=== PATIENT | male | born 1995 | race Caucasian/White ===

== ENCOUNTER 2017-02-11 17:16 | Emergency (ER) | payer BC, OTHER ==
--- NOTE | 2017-02-11 18:05 | ED ---
Male Urogenital HPI - General Chief complaint: Urogenital Stated complaint: high ketone levels Time Seen by Provider: 02/11/17 17:53 Source: patient, RN notes reviewed Mode of arrival: ambulatory Limitations: no limitations - History of Present Illness Initial comments: 21-year-old male presents to the chief complaint of a left swollen testicle for the past day. He reports that he has been having some pain over the left testicle for the past 5 days. He reports he went to [facility] and was told that he had a high ketone level in his urine and was told come to the ED. Patient received no other treatment besides urinalysis. Patient makes no indication of any infection, denies concern for STDs. Patient states that he did have a fever last night. Patient denies any trauma over the area. He reports that his urine is been a somewhat cloudy color. Patient reports that whenever he has the testicular pain he seems to have subsequent chest pain at the same time. Patient denies any significant past medical history. Patient reports normal bowel movements, denies any nausea or vomiting. - Related Data Previous Rx's Medication Instructions Recorded Doxycycline [Vibramycin] 100 mg PO Q12HR #40 capsule 02/11/17 Allergies Allergy/AdvReac Type Severity Reaction Status Date / Time No Known Allergies Allergy Verified 02/11/17 18:08 Review of Systems ROS Statement: Those systems with pertinent positive or pertinent negative responses have been documented in the HPI. ROS Other: All systems not noted in ROS Statement are negative. Past Medical History Past Medical History: No Reported History Additional Past Medical History / Comment(s): DYSPHAGIA; OCC FOOD "COMES BACK UP." History of Any Multi-Drug Resistant Organisms: None Reported Past Surgical History: No Surgical Hx Reported Additional Past Anesthesia/Blood Transfusion Reaction / Comment(s): ONLY HX OF NITROUS OXIDE, NO REACTION. Past Psychological History: No Psychological Hx Reported Smoking Status: Never smoker Past Alcohol Use History: Occasional Past Drug Use History: None Reported General Exam - General Exam Comments Initial Comments: Pleasant 21-year-old male. No acute distress. Limitations: no limitations General appearance: alert, in no apparent distress Head exam: Present: atraumatic, normocephalic, normal inspection Eye exam: Present: normal appearance, PERRL, EOMI. Absent: scleral icterus, conjunctival injection, periorbital swelling ENT exam: Present: normal exam, normal oropharynx, mucous membranes moist, TM's normal bilaterally Neck exam: Present: normal inspection. Absent: tenderness, meningismus, lymphadenopathy Respiratory exam: Present: normal lung sounds bilaterally. Absent: respiratory distress, wheezes, rales, rhonchi, stridor Cardiovascular Exam: Present: regular rate, normal rhythm, normal heart sounds. Absent: systolic murmur, diastolic murmur, rubs, gallop, clicks GI/Abdominal exam: Present: soft, normal bowel sounds. Absent: distended, tenderness, guarding, rebound, rigid exam: Present: testicular tenderness (left testicular tenderness and swelling ). Absent: normal inspection, urethral discharge, scrotal swelling, vertical testicular lie, circumcision Extremities exam: Present: normal inspection, full ROM, normal capillary refill. Absent: tenderness, pedal edema, joint swelling, calf tenderness Back exam: Present: normal inspection Neurological exam: Present: alert, oriented X3, CN II-XII intact Psychiatric exam: Present: normal affect, normal mood Skin exam: Present: warm, dry, intact, normal color. Absent: rash Course Vital Signs 02/11/17 02/11/17 17:18 21:03 Temperature 97.6 F 98.3 F Pulse Rate 78 93 Respiratory 16 18 Rate Blood Pressure 128/71 130/60 O2 Sat by Pulse 97 98 Oximetry Medical Decision Making - Medical Decision Making 21-year-old male presents to the chief complaint of a left swollen testicle for the past day. He reports that he has been having some pain over the left testicle for the past 5 days. He reports he went to [facility] and was told that he had a high ketone level in his urine and was told come to the ED. Patient received no other treatment besides urinalysis. Patient makes no indication of any infection, denies concern for STDs. Patient states that he did have a fever last night. Patient denies any trauma over the area. He reports that his urine is been a somewhat cloudy color. Patient urine has no significant signs of infection. US shows evidence of mild left sided orchitis and epididmytis. Patient will be treated with antibiotics, rocephin and doxycycline. Discussed scrotal support. Urinalysis did show 3+ ketones, discussed this is likely due to dehydration. EKG was within normal limits. Discussed the possiblity that there can be some viral causes of testicular swelling, such as mumps. Patient reports he received all vaccines. Patient also instructed to follow up with urologist and PCP if symptoms persist despite adequete treatment with antibiotics and scrotal support. - Lab Data Lab Results 02/11/17 02/11/17 Range/Units 18:15 18:28 POC Glucose (mg/dL) 77 (75-99) mg/dL POC Glu Density Control Puncher ID Wyatt Monterroso Urine Color Yellow Urine Appearance Clear (Clear) Urine pH 6.0 (5.0-8.0) Ur Specific [place] 1.027 (1.001-1.035) Urine Protein 1+ H (Negative) Urine Glucose (UA) Negative (Negative) Urine Ketones 3+ H (Negative) Urine Blood Negative (Negative) Urine Nitrite Negative (Negative) Urine Bilirubin Negative (Negative) Urine Urobilinogen 2.0 (<2.0) mg/dL Ur Leukocyte Esterase Negative (Negative) Urine RBC 1 (0-5) /hpf Urine WBC 1 (0-5) /hpf Urine Mucus Occasional H (None) /hpf 02/11/17 18:41 EKG shows normal sinus rhythm. Ventricular rate of 66 bpm. AL interval 150 ms. QRS ratio 96 no seconds. QT QTc is 400/419 ms. No evidence of ST elevation or T-wave inversion. No evidence of atrial or ventricular arrhythmias. - Radiology Data Radiology results: report reviewed Doppler performed to assess testicular vascularity. Good bilateral color flow and waveforms are seen. There is no evidence of torsion however the left testicle appears to be somewhat increased arterial flow in the right testicle. There is fluid noted bilaterally, likely small hydroceles. There is possibly for some mild left orchitis. Disposition Clinical Impression: Orchitis and epididymitis Disposition: HOME SELF-CARE Condition: Good Instructions: Epididymo-Orchitis (ED), Urinary Tract Infection in Men (ED) Additional Instructions: Patient advised to do a scrotal support. Also recommended applying cool washcloth to the scrotum. Patient needs to complete the antibiotic prescription. Patient needs to remain hydrated. Return to the emergency department if any alarming signs or symptoms occur. Prescriptions: Doxycycline [Vibramycin] 100 mg PO Q12HR #40 capsule Referrals: Marcelina Ashton SN [Student Nurse] - 1-2 days Juan M Adame MD [STAFF PHYSICIAN] - 1-2 days Time of Disposition: 20:33
[2017-02-11 18:29] LABS: Appearance,Urine Clear (Clear); Bilirubin,Urine Negative (Negative); Glucose,Urine (UA) Negative (Negative); Ketones,Urine 3+ (Negative); Leukocyte Esterase,Urine Negative (Negative); Mucus,Urine Occasional /hpf; Nitrite,Urine Negative (Negative); Particle Count 4425; Protein,Urine 1+ (Negative); RBC,Urine 1 /hpf (0-5); Specific Gravity,Urine 1.027 (1.001-1.035); UA Billing (MACRO vs. MICRO) MICRO; WBC,Urine 1 /hpf (0-5)
[2017-02-11 18:37] LABS: Glucose,Whole Blood 77 mg/dL (75-99)
--- NOTE | 2017-02-11 19:43 | US ---
EXAMINATION TYPE: US scrotum with doppler. Grayscale and color Doppler Duplex imaging performed of t feliciano scrotum. DATE OF EXAM: 02/11/2017 COMPARISON: NONE CLINICAL HISTORY: Swelling of left testicle with chest pain. EXAM MEASUREMENTS: TESTICLES: Right Testicle: 4.3 x 2.1 x 3.3 cm Left Testicle: 4.8 x 2.5 x 3.4 cm EPIDIDYMIS HEAD: Right Epididymis: 1.3 cm Left Epididymis: 1.3 cm Doppler performed to assess for testicular vascularity; good bilateral color flow and waveforms are s een. There is no evidence of testicular torsion. However, the left testicle appears to have somewha t increased arterial flow than the right testicle. Presence of hydroceles: Fluid noted bilaterally, likely small hydroceles Presence of varicoceles: No IMPRESSION: 1. May be some increased flow to the left testicle compared to the right. Correlate for mild left orc hitis.
[2017-02-11] MEDS ORDERED: cefTRIAXone 250 MG VIAL IM STA (20:32)
[2017-02-11] MEDS ORDERED: DOXYCYCLINE 50 MG CAP PO STA (20:33)
[2017-02-11 21:05] VITALS: BP 130/60; PULSE 93; RESP 18; TEMP 98.3
== END 2017-02-11 21:03 | disposition home or self-care (01) ==
LOC: EC 17:16
DX: N45.3 Epididymo-orchitis (principal); R07.9 Chest pain, unspecified
CPT/HCPCS: 36415; 93005; 81001; 87491; 87591; 93975; 76870; 99284; 96372; J0696

== ENCOUNTER → 2017-02-24 | Outpatient (CLI) | payer BC ==
--- NOTE | 2017-02-24 12:16 | FL ---
EXAMINATION: Upper GI with esophagram. DATE: 02/24/2017 CLINICAL INDICATION: 21-year-old male with reports trouble swallowing foods for most of his life. Pre viously, liquids have not been an issue. For the last week, thicker liquids are causing problems. COMPARISON: None Total Fluoroscopy Time: 1 minute 18 seconds. Images: 37 FINDINGS: The swallowing mechanism is normal and hypopharyngeal anatomy is preserved. The cervical and thoracic portions have a normal course and caliber and normal motility. The mucosa is normal and no persistent filling defect is encountered. There is a small sliding hiatal hernia. Positional and Valsalva maneuvers elicit moderate to severe g astroesophageal reflux to the upper third thoracic level. A couple tiny rounded filling defects within the gastric fundus/proximal body suspected to represent air bubbles from the effervescent granules. Otherwise, the stomach and duodenum are free of any persi stent filling defect and demonstrate a normal mucosal pattern. IMPRESSION: 1. Small sliding hiatal hernia and [id number] gastroesophageal reflux. 2. Otherwise, unremarkable esophagram. Specifically, no anatomic abnormality of the cervical esophagu s.
== END | disposition home or self-care (01) ==
LOC: RADFLWHC 11:06
PROVIDERS: ATTEND Family Medicine
DX: K21.9 Gastro-esophageal reflux disease without esophagitis (principal); K44.9 Diaphragmatic hernia without obstruction or gangrene
CPT/HCPCS: 74220

== ENCOUNTER → 2018-01-23 | Outpatient (CLI) | payer BC ==
--- NOTE | 2018-01-23 10:24 | P.STRESS ---
- Stress Test Note Stress Test Results/Findings: Exam Performed: stress echo exercise Exam Date: 01/23/18 Reason for Exam: CHEST PAIN Height: 6 ft 4 in Weight: 83.915 kg Protocol: PEPE Stage: 5 Duration of Exercise: 15:00 Resting Heart Rate: 55 Resting Blood Pressure: 141/53 Maximum Achieved Heart Rate: 177 Maximum Achieved Blood Pressure: 200/48 85% PMHR: 167 100% PMHR: 197 METS: 14.7 Technologist Comment: Stress Test Results/Findings: A 22-year-old gentleman with history of chest pain being evaluated for cardiac status. Stress data: Baseline EKG showed a sinus rhythm with normal NC interval and QRS duration. Patient walked on the Pepe protocol for 15 minutes achieving a maximum heart rate of 177 with a blood pressure 174/42. EKGs taken during and after the exercise did not reveal any significant changes from the baseline. Patient did not experience any chest pain. No arrhythmias are noted. Final impression: #1 . Negative stress test #2. Patient did not experience any chest pain #3. No arrhythmias are noted. #4. Patient's exercise capacity is excellent.
--- NOTE | 2018-01-23 16:44 | ECHOS ---
Stress Test Results/Findings: Exam Performed: stress echo exercise Exam Date: 01/23/18 Reason for Exam: CHEST PAIN Height: 6 ft 4 in Weight: 83.915 kg Protocol: PEPE Stage: 5 Duration of Exercise: 15:00 Resting Heart Rate: 55 Resting Blood Pressure: 141/53 Maximum Achieved Heart Rate: 177 Maximum Achieved Blood Pressure: 200/48 85% PMHR: 167 100% PMHR: 197 METS: 14.7 Technologist Comment: Stress Test Results/Findings: A 22-year-old gentleman with history of chest pain being evaluated for cardiac status. Stress data: Baseline EKG showed a sinus rhythm with normal VA interval and QRS duration. Patient walked on the Pepe protocol for 15 minutes achieving a maximum heart rate of 177 with a blood pressure 174/42. EKGs taken during and after the exercise did not reveal any significant changes from the baseline. Patient did not experience any chest pain. No arrhythmias are noted. Final impression: #1 . Negative stress test #2. Patient did not experience any chest pain #3. No arrhythmias are noted. #4. Patient's exercise capacity is excellent. MTDD
== END ==
LOC: RADNMMAIN 09:06
PROVIDERS: ATTEND Family Medicine
DX: R07.9 Chest pain, unspecified (principal)
CPT/HCPCS: 93351